=== PATIENT | male | born 1995 | race Caucasian/White ===

== ENCOUNTER 2016-08-19 11:43 | Emergency (ER) | payer MEDICAID ==
[2016-08-19 11:57] VITALS: TEMP 98.2
[2016-08-19] MEDS ORDERED: PROPARACAINE 0.5% 15 ML OPHT DROP LEFTEYE ONE (11:58)
--- NOTE | 2016-08-19 12:20 | EDPHY ---
H & P Time Seen by Provider: 08/19/16 12:02 HPI/ROS: While putting his contact this morning this patient had pain in the left eye described as sharp feeling and then he thinks that the contact fell out during the attempt but he was unable to find the contact. Since then it feels like he has something sharp in his eye or scrape to the eye. There is associated redness. The incident occurred few hours prior to arrival. He reports mild visual blurring and no other associated symptoms except for increased tearing to the eye. No right eye symptoms. ROS: No fevers. No other constitutional symptoms HEENT: No recent URI symptoms integumentary -no lip lesions or skin lesions on his face Neuro: No headache 5 point ROS is otherwise negative. Past Medical/Surgical History: Otherwise healthy. He wears contacts but takes amount tonight. No history of cold sores. Smoking Status: Never smoked Physical Exam: Physical Exam Vital signs are normal. General: No acute distress HEENT: Atraumatic. Eyes: Pupils equal and react to light. Extraocular motions are intact. There is conjunctival injection of the left eye. On slit-lamp exam after proparacaine anesthesia there is evidence of corneal irregularity between 6 and 9 o'clock and between 3 and 6 o'clock in the inferior portion of the cornea. With proparacaine dye staining there appears to be a geographic like distribution of very small punctate lesions and possible abrasion. I appreciate no dendritic lesions. No hyphema. No hypopyon. Lids and lashes are normal. Visual acuity significantly diminished in the affected eye as per nurse 's sheet. However exam is limited by his squinting. Cardiac: Brisk capillary refill is intact throughout. Skin: No rash or pallor. Neuro: Alert and oriented x3 with no sensorimotor deficits. Initial differential diagnosis: Corneal abrasion, keratitis Constitutional: Initial Vital Signs Temperature (C) 36.8 C 08/19/16 11:45 Heart Rate 82 08/19/16 11:45 Respiratory Rate 14 08/19/16 11:45 Blood Pressure 128/73 H 08/19/16 11:45 O2 Sat (%) 96 08/19/16 11:45 O2 Delivery Mode Room Air Allergies/Adverse Reactions: No Known Allergies Allergy (Unverified 08/19/16 11:58) Home Medications: Medication Instructions Recorded Gatifloxacin 0.5% [Zymaxid 0.5%] 1 drop OP TID #1 opht.btl 08/19/16 traMADol [Ultram 50 mg (*)] 50 - 100 mg PO Q4 PRN #12 tab 08/19/16 MDM/Departure - MDM Medications Given: Discontinued Medications Proparacaine HCl (Alcaine 0.5%) 1 drops LEFTEYE ONCE ONE Stop: 08/19/16 11:59 Last Admin: 08/19/16 12:07 Dose: 1 drop ED Course/Re-evaluation: Proparacaine applied topically by our nurse with relief of his eye pain. I spoke with Dr. Scanlon-tric[employer] kn[employer] w[employer] who recommends gatifloxacin a follow-up in his office tomorrow. The patient requests an eye patch. Why do not typically treat corneal injury with this Dr. Scanlon feels this is all right for the patient to have an eye patch. Patient understands the need to take the patch off to place antibiotic drops as prescribed. - Depart Disposition: Home, Routine, Self-Care Clinical Impression: Keratitis Corneal abrasion Qualifiers: Encounter type: initial encounter Laterality: left Qualified Code(s): S05.02XA - Injury of conjunctiva and corneal abrasion without foreign body, left eye, initial encounter Condition: Good Instructions: Keratitis (ED), Corneal Abrasion (ED) Additional Instructions: Diagnoses: 1. Keratitis (corneal infection) 2. Corneal abrasion Plan: Gatifloxacin eyedrops as prescribed Ibuprofen-600 mg per 6 hours as needed for pain Tramadol in addition as needed for pain or Tylenol. No driving, alcohol or come tramadol Call Dr. Scanlon to make a follow-up appointment for tomorrow. He wants to see you tomorrow in his office. Do not wear contacts. Prescriptions: Gatifloxacin 0.5% [Zymaxid 0.5%] 1 drop OP TID #1 opht.btl traMADol [Ultram 50 mg (*)] 50 - 100 mg PO Q4 PRN #12 tab PRN Reason: breakthrough pain Referrals: NONE *PRIMARY CARE P,. [Primary Care Provider] - As per Instructions Ryan Scanlon MD [Medical Doctor] - As per Instructions
[2016-08-19] MEDS ORDERED: IBUPROFEN 600 MG TAB PO ONE (12:25)
[2016-08-19 12:27] VITALS: BP 112/62; PULSE 74; RESP 18; O2SAT 95
== END 2016-08-19 12:26 | disposition home or self-care (01) ==
LOC: CED 11:43
DX: H18.822 Corneal disorder due to contact lens, left eye (principal); H16.9 Unspecified keratitis